=== PATIENT | female | born 1965 | race Caucasian/White ===

== ENCOUNTER → 2016-11-10 | Outpatient (CLI) | payer BC, OTHER ==
--- NOTE | 2016-11-10 14:34 | DIAGNOSTIC IMAGING REPORT ---
RIGHT ANKLE 3 VIEWS CLINICAL HISTORY: Right ankle pain. FINDINGS: 3 views of the right ankle are obtained. No prior studies are available for comparison at the time of dictation. The skeletal structures are well mineralized. No fracture is seen. The ankle mortise is intact. There is no joint effusion. The overlying soft tissues are within normal limits. IMPRESSION: No acute bony abnormality is seen in the right ankle. Electronically signed by: Kenton Kidd M.D. 11/10/2016 2:33 PM Dictated Date/Time: 11/10/2016 2:32 PM
== END | disposition home or self-care (01) ==
LOC: C.RDSM 12:53
PROVIDERS: ATTEND Physician Assistant
DX: M25.571 Pain in right ankle and joints of right foot (principal)